=== PATIENT | female | born 1960 | race Caucasian/White ===

== ENCOUNTER 2024-06-20 19:42 | Emergency (ER) | payer BC, SELFPAY ==
[2024-06-20 19:45] VITALS: BP 159/78; PULSE 76; RESP 18; TEMP 36.6; O2SAT 96; BMI 39.1
[2024-06-20] MEDS: Acetaminophen 325 MG Tablet 650 MG PO (20:55)
[2024-06-20] MEDS: traMADol 50 MG Tablet PO (20:55)
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
[2024-06-20 21:43] VITALS: BP 134/80; PULSE 77; RESP 18; O2SAT 95
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
[2024-06-20 23:00] VITALS: BP 134/84; PULSE 80; RESP 18; O2SAT 98
[2024-06-20 23:02] VITALS: BP 134/84; PULSE 80; RESP 18; TEMP 35.9; O2SAT 98
== END 2024-06-20 23:03 | disposition home or self-care (01) ==
PROVIDERS: Emergency Provider Emergency Medicine; Visit Provider Emergency Medicine
DX: S16.1XXA Strain of muscle, fascia and tendon at neck level, initial encounter (principal); S46.812A Strain of other muscles, fascia and tendons at shoulder and upper arm level, left arm, initial encounter; S29.012A Strain of muscle and tendon of back wall of thorax, initial encounter; S09.90XA Unspecified injury of head, initial encounter; V89.2XXA Person injured in unspecified motor-vehicle accident, traffic, initial encounter; Y92.410 Unspecified street and highway as the place of occurrence of the external cause
CPT/HCPCS: 70450; 72070; 72125; 99283